=== PATIENT | female | born 1995 | race Two or more races ===

== ENCOUNTER → 2020-12-15 | Outpatient (CLI) | payer SELFPAY ==
[2020-12-20 04:08] LABS: Chlamydia By Nucleic Acid AMP Negative (Negative)
[2020-12-20 07:41] LABS: Gonococcus By Nucleic Acid AMP Negative (Negative)
[2020-12-23 11:06] LABS: HPV APTIMA, High Risk Negative (Negative)
[2020-12-23 16:58] LABS: HPV Reflexed? YES, CHARGE PATIENT
== END | disposition home or self-care (01) ==
PROVIDERS: Visit Provider Obstetrics & Gynecology
DX: Z12.4 Encounter for screening for malignant neoplasm of cervix (principal); Z11.3 Encounter for screening for infections with a predominantly sexual mode of transmission; Z32.01 Encounter for pregnancy test, result positive
CPT/HCPCS: 87491; 87591; 87624; 88175; G0145

== ENCOUNTER → 2021-01-10 09:43 | Outpatient (CLI) | payer SELFPAY ==
[2021-01-10 10:59] LABS: Absolute Lymphocyte Count 1.59 X10^3/uL (0.83-4.51); Basophil# 0.02 X10^3/uL; Basophil% 0.3 % (0-1); Eosinophil# 0.14 X10^3/uL; Eosinophils% 1.9 % (0-5); Hematocrit 38.5 % (37-47); Lymphocyte # 1.59 X10^3/ul (4.0); Lymphocyte % 22.1 % (19-41); Mean Corp Hgb Conc 31.2 g/dL (32-36); Mean Corpuscular Hgb 25.1 pg (27.0-32.0); Mean Corpuscular Volume 80.4 fL (81-99); Monocyte# 0.41 X10^3/uL; Monocyte% 5.7 % (0-10); NRBC Flagged by Analyzer 0 % (0-5); Neutrophil # 4.99 X10^3/uL (2.7-7.7); Neutrophil % 69.6 % (47-70); Platelet Count 225 K/mm3 (150-450); RBC Distribution Width CV 15.2 % (11.6-14.6); RBC Distribution Width SD 44.4 fl (35.1-43.9); Red Blood Count 4.79 M/mm3 (4.2-5.4); White Blood Count 7.2 K/mm3 (4.4-11.0)
[2021-01-10 11:56] LABS: HIV - WCH Non-Reactive (Nonreactive); Hepatitis B Surface Antigen Non-Reactive (Nonreactive); Hepatitis C Antibody Non-Reactive (Nonreactive); Rubella IgG Reactive (Nonreactive); Syphilis Antibodies Non-reactive
== END ==
PROVIDERS: Visit Provider Obstetrics & Gynecology
DX: Z34.81 Encounter for supervision of other normal pregnancy, first trimester (principal)
CPT/HCPCS: 36415; 85025; 86703; 86762; 86803; 87086; 87340

== ENCOUNTER → 2021-02-14 11:24 | Outpatient (CLI) | payer OTHER, SELFPAY ==
[2021-02-16 03:06] LABS: AFP MoM Value 0.77 (.); AFP Value-EIA 18.9 ng/mL (.); Comment Report (.); DIA MoM Value 0.62 (.); DIA Value-EIA 87.85 pg/mL (.); DSR (By Age) 1071 (.); DSR (Second Trimester) 5287 (.); Gestat. Age Based On As provided (.); Insulin Dep Diabetes No (.); hCG MoM 0.83 (.)
== END ==
LOC: WOBLAB 11:25
PROVIDERS: Visit Provider Obstetrics & Gynecology
DX: Z36.1 Encounter for antenatal screening for raised alphafetoprotein level (principal)
CPT/HCPCS: 36415; 82105; 82677; 84702

== ENCOUNTER → 2021-04-19 14:22 | Outpatient (CLI) | payer OTHER, SELFPAY ==
[2021-04-19 15:38] LABS: Hematocrit 34.6 % (37-47); Hemoglobin 10.7 g/dL (12.0-15.0); Mean Corp Hgb Conc 30.9 g/dL (32-36); Mean Corpuscular Hgb 25.4 pg (27.0-32.0); Mean Corpuscular Volume 82.2 fL (81-99); Mean Platelet Vol. 10.5 fl (6.2-12.0); Platelet Count 226 K/mm3 (150-450); RBC Distribution Width CV 14.4 % (11.6-14.6); RBC Distribution Width SD 42.3 fl (35.1-43.9); Red Blood Count 4.21 M/mm3 (4.2-5.4); White Blood Count 9.5 K/mm3 (4.4-11.0)
[2021-04-19 15:39] LABS: Glucose Challenge Gest 1H 50g 83 mg/dL (70-140)
== END ==
PROVIDERS: Visit Provider Obstetrics & Gynecology
DX: Z34.82 Encounter for supervision of other normal pregnancy, second trimester (principal)
CPT/HCPCS: 36415; 82950; 85027

== ENCOUNTER 2021-06-22 21:00 | Outpatient (CLI) | payer OTHER, SELFPAY ==
[2021-06-22 21:26] VITALS: PULSE 88; O2SAT 98
[2021-06-22 21:27] VITALS: BMI 37.6
[2021-06-22 21:30] VITALS: BP 112/69; PULSE 83
[2021-06-22 21:36] VITALS: TEMP 36.6; O2SAT 98
--- NOTE | 2021-06-23 08:57 | OB.TRI.NOTE ---
HPI - General HPI Narrative SAMUEL ALVARADO, is a 25 F at 33 weeks 3 days gestation who presents to labor and delivery with decreased movement. Maternal Data Information Final GUY: 08/07/21 Gestational age: 33 weeks 3 days PFSH PFSH Home Medications diphenhydramine-acetaminophen [Tylenol PM] 50 ml PO PRN PRN 06/22/21 [History Last Taken Unknown] [id number] [] 1 tab PO DAILY 06/22/21 [History Last Taken 06/21/21 21:00] sertraline [Zoloft] 50 mg PO DAILY 06/22/21 [History Last Taken 06/21/21 21:00] Allergy/AdvReac Type Severity Reaction Status Date / Time No Known Allergies Allergy Verified 06/22/21 21:30 NST FHR Rate Baby A NST Reactive:: Yes FHR Category:: Category I Assessment Assessment Detail: 33-week 3-day gestation with decreased movement. heart tones reactive. Discharged home with routine instructions.
== END 2021-06-22 23:20 | disposition home or self-care (01) ==
LOC: WPOUT 21:15 → WP 21:16
PROVIDERS: Referring Provider Obstetrics & Gynecology; Visit Provider Obstetrics & Gynecology
DX: O36.8130 Decreased fetal movements, third trimester, not applicable or unspecified (principal); Z3A.33 33 weeks gestation of pregnancy
CPT/HCPCS: 59025; 59050; 99218; G0378

== ENCOUNTER 2021-07-12 22:48 | Outpatient (CLI) | payer OTHER, SELFPAY ==
[2021-07-12] VITALS (9 sets, daily range): BP systolic 126; BP diastolic 78; PULSE 108–138; O2SAT 97–100; BMI 37.5
[2021-07-13] VITALS (148 sets, daily range): BP systolic 109–132; BP diastolic 56–81; PULSE 46–153; TEMP 36.2–37.2; O2SAT 81–100
--- NOTE | 2021-07-13 | EKGRS_ITS ---
Test Reason : DYSRHYTHMIA Blood Pressure : / mmHG Vent. Rate : 115 BPM Atrial Rate : 115 BPM P-R Int : 150 ms QRS Dur : 072 ms QT Int : 318 ms P-R-T Axes : 047 051 008 degrees QTc Int : 439 ms Sinus tachycardia Otherwise normal ECG Confirmed by PRATEEK REID, SAMUEL ([id number]), visual effects editor MONSTER GASPAR ([id number]) on 07/17/2021 1:10:29 PM Referred By: Lizbet Johnson Confirmed By:SAMUEL CHANDRA MD
[2021-07-13 00:04] LABS: ROM Internal Control Test YES-OK TO RESULT pt. (Internal QC); ROM Patient Test Negative (Negative)
[2021-07-13] MEDS: Lactated Ringers 1,000 ML 150 ML IV ×2 (00:25→09:14)
[2021-07-13 00:49] LABS: Absolute Lymphocyte Count 1.54 X10^3/uL (0.83-4.51); Absolute Neutrophil Count 6.5 X10^3/uL (2.0-7.7); Basophil# 0.01 X10^3/uL; Basophil% 0.1 % (0-1); Eosinophil# 0.07 X10^3/uL; Eosinophils% 0.8 % (0-5); Hematocrit 39.4 % (37-47); Lymphocyte # 1.54 X10^3/ul (0.83-4.51); Lymphocyte % 17.3 % (19-41); Mean Corp Hgb Conc 30.5 g/dL (32-36); Mean Corpuscular Hgb 24.6 pg (27.0-32.0); Mean Corpuscular Volume 80.9 fL (81-99); Mean Platelet Vol. 11.3 fl (6.2-12.0); Monocyte# 0.73 X10^3/uL; Monocyte% 8.2 % (0-10); NRBC Flagged by Analyzer 0 % (0-5); Neutrophil # 6.53 X10^3/uL (2.7-7.7); Neutrophil % 73.3 % (47-70); Platelet Count 164 K/mm3 (150-450); RBC Distribution Width CV 15.9 % (11.6-14.6); RBC Distribution Width SD 46.8 fl (35.1-43.9); Red Blood Count 4.87 M/mm3 (4.2-5.4); White Blood Count 8.9 K/mm3 (4.4-11.0)
--- NOTE | 2021-07-13 01:02 | CT_ITS ---
STUDY: CTA CHEST REASON FOR EXAM: Female, 26 years old. r/o PE RADIATION DOSAGE (If Supplied By Facility): CTDIvol = ( 13.85 ) mGy, DLP = ( 452.90 ) mGycm TECHNIQUE: The examination was performed with the intravenous administration of IV 100mL Isovue-370. Post-processing of the angiographic images was performed, with multiplanar reformation and 3D reconstruction. Individualized dose optimization techniques were used for this CT. COMPARISON: None. FINDINGS: Normal enhancement of the main pulmonary artery and right and left pulmonary arteries. Normal enhancement of the bilateral peripheral pulmonary arteries. There is no demonstrated pulmonary embolism. Normal thoracic aorta and visualized great vessels. There is no demonstrated aortic dissection. Normal heart and pericardium. Normal mediastinum. Normal hilar regions. Normal visualized trachea and bronchi. The lungs are well expanded. 1.1 cm posterior right lower lobe subpleural nodule. 2.5 cm left lung base lobular, consolidative density. Normal pleura. Normal chest wall structures. Normal osseous structures. Solid mass with perhaps internal calcification measuring up to at least 18.8 cm is partially visualized in the anterior upper abdomen. CT/CTA Chest W/WO Contrast IMPRESSION: Partially visualized anterior abdominal solid mass. Recommend CT abdomen/pelvis to evaluate malignant potential. 1.1 cm right lower lobe subpleural nodule. 2.5 cm left lung base lobular, consolidative density may represent pneumonia. Normal CTA chest examination, without a demonstrated pulmonary embolism or arterial dissection. N.B. : Una Shabazz RN, confirmed on 07/13/2021 02:06:11 (ET) that the healthcare facility has received the radiology report. Electronically Signed: Moses Burdick MD at 2:01 EDT Tel , Service support ,
--- NOTE | 2021-07-13 01:32 | PCM.PN.HOSP ---
Subjective Subjective 26-year-old female who is 36 weeks presented to the hospital with chest pain shortness of breath. She is not requiring any oxygen and satting 98 to 100% on room air. She started having symptoms of Covid about a week ago and was tested initially on the day that symptoms started and was found to be negative however she got tested on Saturday and found out on Saturday that she was positive for Covid. She thinks that she got it from her [id number] who was helping them unload after a baby shower and he had called them saying that he had been positive with Covid after that. No lightheadedness or dizziness. Objective Data Objective Data Vital Signs: Vital Signs Temp Pulse BP Pulse Ox 98.6 F 101 H 132/81 H 100 07/13/21 00:38 07/13/21 01:06 07/13/21 00:30 07/13/21 01:06 Weight: 232 lb 9.6 oz Body Mass Index (BMI) 37.5 Lab / Micro Data Result Diagrams: 07/13/21 00:25 Labs: Laboratory Results - last 24 hr 07/12/21 23:30: Vag Amniotic Fld Detect Negative 07/13/21 00:25: WBC 8.9, RBC 4.87, Hgb 12.0, Hct 39.4, MCV 80.9 L, MCH 24.6 L, MCHC 30.5 L, RDW Std Deviation 46.8 H, RDW Coeff of Sondra 15.9 H, Plt Count 164, MPV 11.3, Immature Gran % (Auto) 0.300, Neut % (Auto) 73.3 H, Lymph % (Auto) 17.3 L, [place] % (Auto) 8.2, Eos % (Auto) 0.8, Baso % (Auto) 0.1, Absolute Neuts (auto) 6.5, Absolute Lymphs (auto) 1.54, Nucleated RBC % 0 Physical Exam Const alert, oriented x3 and no apparent distress General Appearance: cooperative HEENT normocephalic and moist oral mucous membranes Eyes PERRL, EOMs intact bilaterally and conjunctivae normal Neck supple and no JVD Resp normal respiratory effort, no retractions, no use of accessory muscles and clear to auscultation bilaterally Auscultation: Negative for crackles, rales, rhonchi or wheezes Cardio regular rate, regular rhythm, S1 normal heart sound, S2 normal heart sound and no murmurs GI soft to palpation, non-tender and non-distended; Negative for hepatosplenomegaly Extremity no clubbing, cyanosis or edema Skin no rashes or lesions noted Neuro no focal motor deficits and no sensory deficits noted Psych affect normal Appearance: appropriate Assessment & Plan Assessment/Plan (1) COVID: PLAN: 1. COVID-19 -With her status, do not recommend remdesivir at this time and given the fact that she is not hypoxic I do not think that she would need Decadron either -Given her tachycardia and her chest pain and the issues with clotting in the setting of Covid would recommend a CTA of the chest to rule out a PE if okay with OB -If the CT of the chest is negative then would just recommend monitoring, however if it is positive then obviously she would require anticoagulation Charges/Coding Visit Charges Inpatient E&M: 63415 Subs Hosp L2
[2021-07-13] MEDS: Betamethasone/Betamethasone 30 MG/5 ML Vial 12 MG IM (03:02)
[2021-07-13] MEDS: Lactated Ringers 500 ML 999 ML IV (04:18)
--- NOTE | 2021-07-13 09:15 | US_ITS ---
STUDY: OBSTETRICAL ULTRASOUND - BIOPHYSICAL PROFILE REASON FOR EXAM: Female, 26 years old monitoring concerns. -- COVID POSITIVE LMP: 10/31/2020. PRIOR ULTRASOUND: None. TECHNIQUE: Transabdominal TECHNICAL QUALITY: Adequate. FINDINGS: There is a single intrauterine fetus. The fetus is in a cephalic presentation. There is demonstrated cardiac activity with a heart rate of 142 bpm. There is a normal amniotic fluid volume. The largest amniotic fluid pocket measures 6.8 cm. The amniotic fluid index (FREYA) is 17.8 cm. The placenta is fundal in location. There are Grade 2 placental changes. Age by LMP: 36 weeks, 3 days. GUY by LMP: 08/07/2021. Gender: Male BIOPHYSICAL PROFILE: Breathing Movements (FBM): 2 Gross Body Movements (GBM): 2 Tone (FT): 2 Amniotic Fluid Volume (AFV): 2 TOTAL SCORE: / US/Biophysical Prof W/O Non Stres IMPRESSION: Normal biophysical profile of 06/11. Electronically Signed: Roscoe Plaza MD at 12:43 EDT , Service support ,
--- NOTE | 2021-07-13 09:37 | PN.OBGYN_ITS ---
Subjective Subjective 36-week gestation patient who presented last evening with chest pain and approximately 1 week post diagnosis of COVID-19. Seen by hospitalist and a CTA of the chest was recommended to rule out PE. This was negative. Patient has been hydrated overnight and is actually feeling quite a bit better with chest pain minimal at present. Last evening the patient also had some intermittent late decelerations. These seem to have resolved this morning. She was given a dose of Celestone at about 3 AM in anticipation of possible delivery. Cervix has remained unchanged since admission and contractions have subsided. Objective Data Objective Data Vital Signs: Vital Signs Temp Pulse BP Pulse Ox 98.2 F 94 116/69 95 07/13/21 08:17 07/13/21 09:34 07/13/21 08:17 07/13/21 09:34 Weight: 232 lb 9.6 oz Body Mass Index (BMI) 37.5 Intake & Output: Intake and Output for Last 24 Hours 07/11/21 07/12/21 07/13/21 23:59 23:59 23:59 Intake Total 1500.0 / 1500.0 Balance 1500.0 / 1500.0 Lab / Micro Data Result Diagrams: 07/13/21 00:25 Labs: Laboratory Results - last 24 hr 07/12/21 23:30: Vag Amniotic Fld Detect Negative 07/13/21 00:25: WBC 8.9, RBC 4.87, Hgb 12.0, Hct 39.4, MCV 80.9 L, MCH 24.6 L, MCHC 30.5 L, RDW Std Deviation 46.8 H, RDW Coeff of Sondra 15.9 H, Plt Count 164, MPV 11.3, Immature Gran % (Auto) 0.300, Neut % (Auto) 73.3 H, Lymph % (Auto) 17.3 L, [place] % (Auto) 8.2, Eos % (Auto) 0.8, Baso % (Auto) 0.1, Absolute Neuts (auto) 6.5, Absolute Lymphs (auto) 1.54, Nucleated RBC % 0 07/13/21 00:25: Blood Type A POSITIVE, Antibody Screen NEGATIVE NST FHR Rate Baby A NST Reactive:: Yes FHR Category:: Category I Uterine Activity:: Reactive NST today but last evening occasional late deceleration. Minimal contractions noted today. Assessment & Plan (1) : PLAN: Symptoms of Covid infection seem to have abated today. No fevers. Will check biophysical profile and monitor for several more hours. If all are reassuring then plan to discharge to home and return tomorrow for NST and second dose of Celestone. Will have patient return next Saturday for a nonstress test and follow-up in the office in about 1 week. At that time she will be approximately 2 weeks from start of symptoms from present Covid episode. Patient was encouraged to use Nexium over the next 2 to 4 weeks to help with possible GERD.
[2021-07-13] MEDS: Pantoprazole Sodium 20 MG Tablet PO (10:00)
[2021-07-13] MEDS: Acetaminophen 500 MG Tablet 1000 MG PO (10:00)
== END 2021-07-13 13:45 | disposition home or self-care (01) ==
LOC: WPOUT 22:57 → WP 22:58
PROVIDERS: Visit Provider Obstetrics & Gynecology
DX: O98.513 Other viral diseases complicating pregnancy, third trimester (principal); U07.1 COVID-19; Z3A.36 36 weeks gestation of pregnancy
CPT/HCPCS: 96360; 96361 ×12; 36415; 59025; 59050; 71275; 76819; 84112; 85025; 86850; 86900; 86901; 93005; 94760; 96372; 99218; J7120; Q9967; G0378; J0702

== ENCOUNTER 2021-07-14 07:05 | Outpatient (CLI) | payer OTHER, SELFPAY ==
[2021-07-14 07:16] VITALS: BMI 37.0
[2021-07-14 07:33] VITALS: TEMP 36.4; O2SAT 96
[2021-07-14 07:40] VITALS: BP 119/73; PULSE 81; O2SAT 96
[2021-07-14 08:40] VITALS: BP 100/58; PULSE 69
[2021-07-14 08:42] VITALS: PULSE 72
[2021-07-14 08:43] VITALS: TEMP 36.4; O2SAT 99
[2021-07-14] MEDS: Betamethasone/Betamethasone 30 MG/5 ML Vial 12 MG IM (08:45)
--- NOTE | 2021-07-14 20:30 | OB.TRI.NOTE ---
HPI - General HPI Narrative SAMUEL ALVARADO, is a 26 F who presents at 36 4/7 wga for NST and second celestone injection. Maternal Data Information GUY Calculator Estimated Delivery Date Method Current WG Current Estimate 08/07/21 Manual 41w 1d PFSH PFS Medical History (Updated 08/15/21 @ 08:[address] Lizbet Johnson MD) Anxiety Depression Headache Vacuum-assisted vaginal delivery Home Medications [id number] 1 tab PO DAILY 06/22/21 [History Last Taken 07/13/21] sertraline [Zoloft] 50 mg PO DAILY 06/22/21 [History Last Taken 07/13/21] zinc 1 tab PO DAILY 07/12/21 [History Last Taken 07/13/21] azithromycin 500 mg PO DAILY 3 Days #3 tab 07/17/21 [Rx Last Taken Unknown] cefdinir 300 mg PO BID 6 Days #12 cap 07/17/21 [Rx Last Taken Unknown] dexamethasone 6 mg PO DAILY 9 Days #9 tab 07/17/21 [Rx Last Taken Unknown] sennosides-docusate sodium [Stool Softener-Stimulant Laxat] 1 - 2 tab PO DAILY PRN PRN #0 tab 07/17/21 [Rx Last Taken Unknown] Allergy/AdvReac Type Severity Reaction Status Date / Time No Known Allergies Allergy Verified 07/15/21 14:16 Surgical History (Updated 07/15/21 @ 20:[address] Lizbet Johnson MD) History of surgery Social History Smoking Status: Former smoker History Elective abortions Hx Para 0 Spontaneous abortions Hx # Term Pregnancies Ectopic pregnancies Hx # Pregnancies Multiple births # of living children NST FHR Rate Baby A Baseline: 130 Variability:: Moderate Accelerations:: 15 x 15 Decelerations:: None NST Reactive:: Yes FHR Category:: Category I Uterine Activity:: 0/10 Assessment & Plan (1) 36 weeks gestation of : PLAN: NST reactive Celestone # 2 given d/c home
== END 2021-07-14 09:23 | disposition home or self-care (01) ==
LOC: WPOUT 07:15 → WP 07:16
PROVIDERS: Referring Provider Obstetrics & Gynecology; Visit Provider Obstetrics & Gynecology
DX: O99.343 Other mental disorders complicating pregnancy, third trimester (principal); F32.9 Major depressive disorder, single episode, unspecified; F41.9 Anxiety disorder, unspecified; Z79.52 Long term (current) use of systemic steroids; Z79.899 Other long term (current) drug therapy; Z87.891 Personal history of nicotine dependence; Z3A.36 36 weeks gestation of pregnancy
CPT/HCPCS: 59025; 59050; 96372; 99218; G0378; J0702

== ENCOUNTER 2021-07-15 13:55 | Inpatient (IN) | payer OTHER, SELFPAY ==
[2021-07-15] VITALS (41 sets, daily range): BP systolic 79–135; BP diastolic 49–82; PULSE 66–243; TEMP 36.4–37.5; O2SAT 88–100; BMI 37.0
[2021-07-15] MEDS: Lactated Ringers 500 ML 999 ML IV ×2 (14:35→19:49)
[2021-07-15 15:00] LABS: Absolute Lymphocyte Count 1.24 X10^3/uL (0.83-4.51); Absolute Neutrophil Count 8.7 X10^3/uL (2.0-7.7); Basophil# 0.02 X10^3/uL; Basophil% 0.2 % (0-1); Eosinophil# 0.01 X10^3/uL; Eosinophils% 0.1 % (0-5); Hemoglobin 11.8 g/dL (12.0-15.0); Lymphocyte # 1.24 X10^3/ul (0.83-4.51); Lymphocyte % 11.7 % (19-41); Mean Corp Hgb Conc 30.3 g/dL (32-36); Mean Corpuscular Hgb 24.7 pg (27.0-32.0); Mean Corpuscular Volume 81.6 fL (81-99); Monocyte# 0.62 X10^3/uL; Monocyte% 5.8 % (0-10); NRBC Flagged by Analyzer 0 % (0-5); Neutrophil # 8.67 X10^3/uL (2.7-7.7); Neutrophil % 81.4 % (47-70); Platelet Count 167 K/mm3 (150-450); RBC Distribution Width SD 47.5 fl (35.1-43.9); Red Blood Count 4.78 M/mm3 (4.2-5.4); White Blood Count 10.6 K/mm3 (4.4-11.0)
--- NOTE | 2021-07-15 15:00 | HP.PCM.OB_ITS ---
HPI - General General Date of Admission: 07/15/21 HPI Narrative SAMUEL ALVARADO, is a 26 F who presents G3, P0 at 36 weeks 5 days in active labor 4 to 5 cm dilated. Patient a positive Covid test on Saturday and is feeling better today denies any chest pain shortness of breath cough or wheezing. Patient denies any fevers for more than a few days. She started having increased contractions throughout the day today. She received 2 doses of steroids the last was 24 hours ago. PFSH [facility] Medical History (Updated 07/15/21 @ 15:[address] Alyse Gerber MD) Anxiety Depression Headache Home Medications diphenhydramine-acetaminophen [Tylenol PM] 50 ml PO PRN PRN 06/22/21 [History Last Taken 07/11/21] [id number]-FA [] 1 tab PO DAILY 06/22/21 [History Last Taken 07/13/21] sertraline [Zoloft] 50 mg PO DAILY 06/22/21 [History Last Taken 07/13/21] ascorbic acid (vitamin C) [Vitamin C] 100 mg PO DAILY 07/12/21 [History Last Taken 07/13/21] zinc 1 tab PO DAILY 07/12/21 [History Last Taken 07/13/21] Allergy/AdvReac Type Severity Reaction Status Date / Time No Known Allergies Allergy Verified 07/15/21 14:16 Surgical History (Updated 07/13/21 @ 06:20 by Bing Nina) History of surgery Social History Smoking Status: Former smoker History Elective abortions Hx Para 0 Spontaneous abortions Hx # Term Pregnancies Ectopic pregnancies Hx # Pregnancies Multiple births # of living children NST FHR Rate Baby A Baseline: 140 Variability:: Moderate Accelerations:: None Decelerations:: Variable (Isolated mild) NST Reactive:: Yes FHR Category:: Category II (Getting IV fluids variability improved with fluids) Uterine Activity:: Every 2 to 3 ROS Constitutional Constitutional: Reports systems reviewed and no addt'l complaints, except as documented ENT HEENT: Reports systems reviewed and no addt'l complaints, except as documented Cardiovascular Cardiovascular: Reports systems reviewed and no addt'l complaints, except as documented Respiratory/Chest Respiratory/Chest: Reports systems reviewed and no addt'l complaints, except as documented Gastrointestinal Gastrointestinal: Reports systems reviewed and no addt'l complaints, except as d ocumented and nausea; Denies abdominal pain Genitourinary Genitourinary: Reports systems reviewed and no addt'l complaints, except as documented, contractions Details: present and frequency (regular ) and movement Details: present Musculoskeletal Musculoskeletal: Reports systems reviewed and no addt'l complaints, except as documented Integumentary Integumentary: Reports as per HPI Neurologic Neurologic: Reports systems reviewed and no addt'l complaints, except as documented Endocrine Endocrinology: Reports systems reviewed and no addt'l complaints, except as documented Vital Signs Vital Signs Vital Signs: 07/15/21 14:27 Temperature 98.2 F Temperature Source Temporal Pulse Rate 80 Blood Pressure 116/72 BP Systolic 116 BP Diastolic 72 Pulse Ox 97 Weight Weight: 229 lb 4.492 oz Body Mass Index (BMI) 37.0 Physical Exam Const alert, oriented x3 and healthy appearing Constitutional Narrative: uncomfortable with contractions HEENT normocephalic and moist oral mucous membranes Head and Scalp: atraumatic Neck full ROM, no lymphadenopathy, supple and thyroid normal General: trachea midline Thyroid: thyroid normal Lymph Lymphatic: no lymphadenopathy noted Chest inspection of chest normal Resp normal respiratory effort Cardio regular rate GI normal to inspection, nondistended, normoactive bowel sounds, soft to palpation and non-tender Inspection: gravid external exam normal Bimanual Exam - Vag & Uterus: uterus non-tender Manual OB Exam: estimated gestational size appropriate, presentation cephalic, dilated 4.5, effaced 70, station and other -2 Extremity normal to inspection General Extremity: Negative for edema Skin no rashes or lesions noted Neuro deep tendon reflexes 2+ bilaterally Motor Exam: strength 5/5 throughout and clonus absent Psych mental status grossly normal Labs Labs Labs: Blood Type A POSITIVE Antibody Screen NEGATIVE Hct 39.4 % (37-47) Hgb 12.0 g/dL (12.0-15.0) Syphilis Total Ab Non-reactive Rubella IgG Antibody Reactive (Nonreactive) Hep Bs Antigen Non-Reactive (Nonreactive) Neisseria gonorrhoeae DNA ([place]A) Negative (Negative) HIV 1&2 Antibody Non-Reactive (Nonreactive) Glucose 1 Hr 50 gm 83 mg/dL (70-140) Assessment & Plan (1) labor: COMMENT: 36w5d (2) : (3) COVID: COMMENT: 07/10 PLAN: Patient presents IAL, plan expectant management for , pitocin/AROM PRN if needed. Pain management: plans epidural. GBS unknown- PCN Management of any complications: covid 19 pos- appropriate precautions. cat II tracing- IVFs, monitoring, position changes, will add 02 PRN. I have reviewed the [facility] and made any clinically relevant updates.
[2021-07-15] MEDS: Lactated Ringers 1,000 ML 50 ML IV (15:10)
[2021-07-15] MEDS: fentaNYL-bupivacaine (epidural) 100 ML BAG EPIDURAL (15:45)
[2021-07-15] MEDS: Oxytocin 30 units/NS 500 ml 30 UNITS/500 ML IV.SOLN 334 UNITS IV (20:15)
--- NOTE | 2021-07-15 20:53 | OP.PCM_ITS ---
Assessment & Plan (1) Vacuum-assisted vaginal delivery: (2) COVID: COMMENT: First sx 07/06/21 - - 07/10 Maternal Data Information GUY Calculator Estimated Delivery Date Method Current WG Current Estimate 08/07/21 Manual 36w 5d Vaginal Delivery Maternal Presentation Maternal Presentation: Active Labor Operative Information Date of Procedure: 07/15/21 Pre-Operative Diagnosis: 1. 36-5/7 weeks gestation 2. labor 3. COVID-19 positive 4. Category two heart rate tracing Post-Operative Diagnosis: 1. 36-5/7 weeks gestation 2. labor 3. COVID-19 positive 4. Category two heart rate tracing Surgery / Procedure Performed: Vacuum Assisted Vaginal Delivery Type of Anesthesia: Epidural Anesthesiologist: Adolph Lopes Drain: Garcia to straight drain Estimated Blood Loss: 250 ml Findings Description of Procedure: Patient was fully dilated and zero station with category two heart rate tracing with moderate variability maintained. She pushed with descent however there were increasing and deepening heart rate variable decelerations despite maternal repositioning and fluid bolus. I advised vacuum assistance with review of vacuum related risk including scalp edema, cephalohematoma, subgaleal hemorrhage, scalp laceration. I discussed section as an alternative with review of associated maternal- risk. The patient agreed to proceed with vacuum assistance. The fetus was OA and the vacuum was placed at the flexion point with 500 mm suction applied at 1952h. There was some intermittent slight loss of suction that was reapplied and a single pop-off occurred at 2002. The vacuum was reapplied with the subsequent contraction with continued descent of the head. Total time with the vacuum in place was approximately 18-19 minutes with subsequent delivery of the head. The vacuum was released at 2010 and infant shoulders delivered with ease revealing a male infant. The was placed on maternal abdomen and further attended by the nursery personnel. The cord was doubly clamped and cut and the was evaluated in the by the pediatric hospitalist. The placenta delivered spontaneously and appeared intact on inspection. A first-degree perineal laceration with vaginal extension was repaired using 3-0 Vicryl repeat. A right labial laceration extending to the hymenal ring was also repaired with hemostasis attained at both sites. The nurse and I both attempted retrieval of arterial and venous cord gases however insufficient specimen volume was obtained for processing. Sponge and needle counts were correct x2. Apgars 5, 7, and 9 Presentation: Vertex Amniotic Membrane Rupture Type: Artificial Time of Membrane Rupture: 1634h Amniotic Fluid Description: Clear Placental Delivery Description: Spontaneous Placenta Disposition: [facility] Specimen(s) Removed: Placenta Cord Vessel Description: 3 Vessels Cord Entanglement: - (Around shoulder and thigh) Nuchal Cord Compression: With compression Infant A Gender: Male (1 minute): 5 (5 minute): 7 Delayed Cord Clamping: No Post Vaginal Delivery Medications Given After Delivery: IV Pitocin Episiotomy Description: None Laceration: Midline, Perineal Extension/lac, Vaginal Extension/lac and 2nd degree
[2021-07-15] MEDS: Acetaminophen 500 MG Tablet 1000 MG PO (21:35)
[2021-07-15] MEDS: 0.9% Saline Lock 10 ML Syringe IV (22:59)
[2021-07-15] MEDS: Ibuprofen 600 MG Tablet PO (22:59)
[2021-07-16] VITALS (10 sets, daily range): BP systolic 94–138; BP diastolic 46–81; PULSE 60–123; RESP 16–20; TEMP 36.9–39.2; O2SAT 93–99
[2021-07-16] MEDS: Acetaminophen 500 MG Tablet 1000 MG PO ×3 (06:06→21:27)
--- NOTE | 2021-07-16 08:01 | PN.OBGYN_ITS ---
Subjective Subjective No issues overnight. Visited her infant in the special care nursery overnight. She is pumping. Reports few coughing episodes with shortness of breath, but otherwise denies shortness of breath or chest pain. Denies heavy lochia or belly pain. Objective Data Objective Data Vital Signs: Vital Signs Temp Pulse Resp BP Pulse Ox 98.8 F 82 18 94/46 L 100 07/16/21 06:13 07/16/21 02:54 07/16/21 02:54 07/16/21 02:54 07/15/21 22:55 Oxygen Delivery Method Room Air Weight: 104 kg Body Mass Index (BMI) 37.0 Intake & Output: Intake and Output for Last 24 Hours 07/14/21 07/15/21 07/16/21 23:59 23:59 23:59 Intake Total 2467.07 / 2467.07 Output Total 1800 / 1800 600 / 600 Balance 667.07 / 667.07 -600 / -600 Lab / Micro Data Result Diagrams: 07/15/21 14:35 Labs: Laboratory Results - last 24 hr 07/15/21 14:35: WBC 10.6, RBC 4.78, Hgb 11.8 L, Hct 39.0, MCV 81.6, MCH 24.7 L, MCHC 30.3 L, RDW Std Deviation 47.5 H, RDW Coeff of Sondra 16.0 H, Plt Count 167, MPV 11.0, Immature Gran % (Auto) 0.800, Neut % (Auto) 81.4 H, Lymph % (Auto) 11.7 L, [place] % (Auto) 5.8, Eos % (Auto) 0.1, Baso % (Auto) 0.2, Absolute Neuts (auto) 8.7 H, Absolute Lymphs (auto) 1.24, Nucleated RBC % 0 07/15/21 14:35: Blood Type Cancelled, Antibody Screen Cancelled 07/15/21 16:55: Blood Type A POSITIVE, Antibody Screen NEGATIVE Physical Exam Const alert, oriented x3 and no apparent distress General Appearance: cooperative and comfortable HEENT normocephalic Resp Auscultation: clear to auscultation bilaterally Cardio regular rate, regular rhythm, S1 normal heart sound and S2 normal heart sound OB / External & Speculum: other Uterus Palpation: other OB Fundus firm and nontender Extremity General Extremity: edema bilateral Assessment & Plan (1) Vacuum-assisted vaginal delivery: PLAN: Rh positive Routine care (2) COVID: COMMENT: First sx 07/06/21 PLAN: Sx much improved from prior with residual intermittent cough Supportive care
--- NOTE | 2021-07-16 21:35 | RAD_ITS ---
STUDY: X-RAY CHEST REASON FOR EXAM: Female, 26 years old. fever r/o pna -- covid19, first sx 9/, now fever, cough PPD#1 TECHNIQUE: PA and lateral chest radiographs COMPARISON: None. FINDINGS: Bilateral infrahilar pulmonary infiltrates. Bibasilar atelectasis. There is no demonstrated pleural abnormality. Normal size heart. Normal mediastinum and russell. Normal visualized pulmonary arteries. Normal visualized aortic arch and descending thoracic aorta. Normal visualized thoracic spine. Normal visualized ribs, clavicles, and shoulders. There is no demonstrated abnormality of the visualized soft tissue structures of the upper abdomen. RAD/Chest PA and Lateral IMPRESSION: Multifocal pneumonia with bibasilar atelectasis. Electronically Signed: Moses Burdick MD at 23:46 EDT Tel , Service support ,
[2021-07-16 22:28] LABS: Absolute Lymphocyte Count 0.81 X10^3/uL (0.83-4.51); Absolute Neutrophil Count 5.5 X10^3/uL (2.0-7.7); Basophil# 0.02 X10^3/uL; Basophil% 0.3 % (0-1); Eosinophil# 0.03 X10^3/uL; Eosinophils% 0.4 % (0-5); Hematocrit 36.1 % (37-47); Hemoglobin 11.1 g/dL (12.0-15.0); Lymphocyte # 0.81 X10^3/ul (0.83-4.51); Lymphocyte % 11.9 % (19-41); Mean Corp Hgb Conc 30.7 g/dL (32-36); Mean Corpuscular Hgb 24.4 pg (27.0-32.0); Mean Corpuscular Volume 79.5 fL (81-99); Mean Platelet Vol. 10.6 fl (6.2-12.0); Monocyte# 0.31 X10^3/uL; Monocyte% 4.6 % (0-10); NRBC Flagged by Analyzer 0 % (0-5); Neutrophil % 81.2 % (47-70); Platelet Count 148 K/mm3 (150-450); RBC Distribution Width CV 16.1 % (11.6-14.6); RBC Distribution Width SD 46.4 fl (35.1-43.9); Red Blood Count 4.54 M/mm3 (4.2-5.4); White Blood Count 6.8 K/mm3 (4.4-11.0)
[2021-07-16] MEDS: Enoxaparin 40 MG/0.4 ML Syringe SC (22:37)
[2021-07-16] MEDS: Ceftriaxone 1 GM/50 ML BAG IV (22:37)
[2021-07-16] MEDS: Azithromycin 250 MG Tablet 500 MG PO (22:37)
[2021-07-16] MEDS: Ibuprofen 600 MG Tablet PO (22:41)
[2021-07-16 22:53] LABS: Bacteria 0 SEEN /hpf (None Seen); Mucous, Urine 0 SEEN /hpf (<or=2+); Squamous Epithelial Cells - UA 0 SEEN /hpf (5-10); White Blood Cells 0 SEEN /hpf (0-5)
[2021-07-16 23:03] LABS: ALB/GLOB Ratio 0.6 RATIO (0.9-2.4); AST(SGOT) 25 U/L (15-37); Alanine Aminotransfer ALT/SGPT 16 U/L (13-56); Albumin, Serum 2.2 g/dL (3.2-5.0); Alkaline Phosphatase 91 U/L (45-117); Anion Gap 10 (5-15); BUN 8 mg/dL (7-18); BUN/Creat Ratio 13.4 RATIO (10-20); Calcium,Total 8.3 mg/dL (8.5-10.1); Chloride 104 mmol/L (98-107); EST Glomerular Filtration Rate 131 mL/min (>60); Est Glom Filt Rate - Afr Amer 159 mL/min (>60); Estimated Creatinine Clearance 135.35 ml/min; Globulin 3.7 g/dL (2.2-4.2); Glucose 92 mg/dL (74-106); Potassium 3.3 mmol/L (3.5-5.1); Protein, Total 5.9 g/dL (6.4-8.2); Sodium Level 139 mmol/L (136-145)
[2021-07-16 23:04] LABS: Lactic Acid 1.1 mmol/L (0.4-1.9)
[2021-07-16 23:04] LABS: Color, Urine Yellow (Yellow); Glucose, Dipstick Normal (Normal); Ketone-Dipstick Negative (Negative); Leukocyte Esterase-Dipstick 100 /ul (Negative); Nitrite-Dipstick Negative (Negative); Occult Blood-Urine 250 /ul (Negative); Protein-Dipstick 15 mg/dl (Negative); Urine Bilirubin Dipstick Negative (Negative); Urine Clarity Sl. Cloudy (Clear); Urine Urobilinogen Normal (Normal)
--- NOTE | 2021-07-16 23:04 | PN_ITS ---
Subjective Subjective Patient c/o fever, chills, headache and cough. She reports shortness of breath when lying down or related to coughing. Cough worse than yesterday and this morning. She feels like she gets something stuck in her throat and keeps coughing until phlegm comes up. She denies congestion, rhinorrhea, sore throat, nausea, vomiting. + mild left ear pain. No chest pain, abdominal pain. Denies heavy bleeding or vaginal odor, leg pain or leg swelling. Objective Data Objective Data Vital Signs: Vital Signs Temp Pulse Resp BP Pulse Ox 98.9 F 116 H 18 111/70 93 07/16/21 22:52 07/16/21 22:52 07/16/21 22:52 07/16/21 22:52 07/16/21 22:52 Oxygen Delivery Method Room Air Weight: 104 kg Body Mass Index (BMI) 37.0 Intake & Output: Intake and Output for Last 24 Hours 07/14/21 07/15/21 07/16/21 23:59 23:59 23:59 Intake Total 2467.07 / 2467.07 Output Total 1800 / 1800 600 / 600 Balance 667.07 / 667.07 -600 / -600 Lab / Micro Data Result Diagrams: 07/16/21 22:10 07/16/21 22:10 Labs: Laboratory Results - last 24 hr 07/16/21 22:10: Sodium 139, Potassium 3.3 L, Chloride 104, Carbon Dioxide 25.0, Anion Gap 10, BUN 8, Creatinine 0.60, Estim Creat Clear Calc 135.35, Est GFR (MDRD) Af Amer 159, Est GFR (MDRD) Non-Af 131, BUN/Creatinine Ratio 13.4, Glucose 92, Calcium 8.3 L, Total Bilirubin 0.30, AST 25, ALT 16, Alkaline Phosphatase 91, Total Protein 5.9 L, Albumin 2.2 L, Globulin 3.7, Albumin/Globulin Ratio 0.6 L 07/16/21 22:10: WBC 6.8, RBC 4.54, Hgb 11.1 L, Hct 36.1 L, MCV 79.5 L, MCH 24.4 L, MCHC 30.7 L, RDW Std Deviation 46.4 H, RDW Coeff of Sondra 16.1 H, Plt Count 148 L, MPV 10.6, Immature Gran % (Auto) 1.600 H, Neut % (Auto) 81.2 H, Lymph % (Auto) 11.9 L, [place] % (Auto) 4.6, Eos % (Auto) 0.4, Baso % (Auto) 0.3, Absolute Neuts (auto) 5.5, Absolute Lymphs (auto) 0.81 L, Nucleated RBC % 0 07/16/21 22:14: Lactic Acid 1.1 Physical Exam Const alert, oriented x3 and no apparent distress HEENT normocephalic Resp normal respiratory effort, no retractions and no use of accessory muscles Resp Narrative: decreased air movement in right lower lung and few rhonchi in left mid lung Effort and Inspection: able to speak in complete sentences Cardio regular rhythm, S1 normal heart sound, S2 normal heart sound and no murmurs Rate: tachycardic GI normal to inspection, nondistended, normoactive bowel sounds, soft to palpation, non-tender, non-distended and no masses no CVA tenderness Narrative: No suprapubic tenderness, no fundal tenderness Uterus Palpation: uterus fundus firm and other OB fundus nontender Extremity no calf tenderness and no pedal edema Neuro oriented x3 Assessment & Plan Assessment/Plan (1) Puerperal fever, : PLAN: Suspect PNA - wbc 6.8, relative leukopenia given recent delivery and recent betamethasone course completed CTA Chest 07/13 reviewed with possible left PNA and CXR today suggests PNA. Await final read. Dfdx UTI - U/A, Ucx sent Blood culture x 2 given high grade fever f/u lactate (2) Pneumonia: QUALIFIERS: Pneumonia type: due to unspecified organism PLAN: Ceftriaxone, Azithromycin (3) COVID: PLAN: First sx 07/06 - pt post quarantine - low risk for transmission (4) Vacuum-assisted vaginal delivery: PLAN: Routine care (5) Hypokalemia: PLAN: Will replete
[2021-07-16 23:14] LABS: Red Blood Cells-Urine 25-50 SEEN /hpf (0-5)
[2021-07-17] VITALS (8 sets, daily range): BP systolic 97–133; BP diastolic 53–86; PULSE 85–115; RESP 16–18; TEMP 36.3–38.1; O2SAT 92–100
[2021-07-17] MEDS: Sertraline 50 MG Tablet PO (00:06)
--- NOTE | 2021-07-17 03:11 | NURSING ---
Pt placed on continuous pulse ox during previous vitals. Upon rounding, pt sleeping and sao2 92% on room air and dropped down to 87%. Pt placed on 3L O2 via nasal cannula. After NC placed, sa02 increased to 95-96%.
--- NOTE | 2021-07-17 07:18 | PN.OBGYN_ITS ---
Subjective Subjective Denies fever or chills. Reports continue shortness of breath with no worsening from prior. No abdominal, chest pain. Denies heavy lochia. Objective Data Objective Data Vital Signs: Vital Signs Temp Pulse Resp BP Pulse Ox 97.3 F L 85 16 107/63 96 07/17/21 05:30 07/17/21 05:30 07/17/21 05:30 07/17/21 05:30 07/17/21 05:30 Oxygen Flow Rate (L/min) 3 Oxygen Delivery Method Nasal Cannula Weight: 104 kg Body Mass Index (BMI) 37.0 Intake & Output: Intake and Output for Last 24 Hours 07/15/21 07/16/21 07/17/21 23:59 23:59 23:59 Intake Total 2467.07 / 2467.07 50 / 50 Output Total 1800 / 1800 600 / 600 Balance 667.07 / 667.07 -550 / -550 Lab / Micro Data Result Diagrams: 07/16/21 22:10 07/16/21 22:10 Labs: Laboratory Results - last 24 hr 07/16/21 22:10: Sodium 139, Potassium 3.3 L, Chloride 104, Carbon Dioxide 25.0, Anion Gap 10, BUN 8, Creatinine 0.60, Estim Creat Clear Calc 135.35, Est GFR (MDRD) Af Amer 159, Est GFR (MDRD) Non-Af 131, BUN/Creatinine Ratio 13.4, Glucose 92, Calcium 8.3 L, Total Bilirubin 0.30, AST 25, ALT 16, Alkaline Phosphatase 91, Total Protein 5.9 L, Albumin 2.2 L, Globulin 3.7, Albumin/Globulin Ratio 0.6 L 07/16/21 22:10: WBC 6.8, RBC 4.54, Hgb 11.1 L, Hct 36.1 L, MCV 79.5 L, MCH 24.4 L, MCHC 30.7 L, RDW Std Deviation 46.4 H, RDW Coeff of Sondra 16.1 H, Plt Count 148 L, MPV 10.6, Immature Gran % (Auto) 1.600 H, Neut % (Auto) 81.2 H, Lymph % (Auto) 11.9 L, [place] % (Auto) 4.6, Eos % (Auto) 0.4, Baso % (Auto) 0.3, Absolute Neuts (auto) 5.5, Absolute Lymphs (auto) 0.81 L, Nucleated RBC % 0 07/16/21 22:14: Lactic Acid 1.1 07/16/21 22:45: Urine Color Yellow, Urine Clarity Sl. Cloudy, Urine pH 7.0, Ur Specific [place] 1.010, Urine Protein 15 H, Urine Glucose (UA) Normal, Urine Ketones Negative, Urine Occult Blood 250 H, Urine Nitrite Negative, Urine Bilirubin Negative, Urine Urobilinogen Normal, Ur Leukocyte Esterase 100 H, Urine RBC 25-50 SEEN, Urine WBC 0 SEEN, Ur Squamous Epith Cells 0 SEEN, Urine Bacteria 0 SEEN, Urine Mucus 0 SEEN Radiography Diagnostic Testing: Radiology Impression Chest X-Ray 07/16/21 21:35 IMPRESSION: Multifocal pneumonia with bibasilar atelectasis. Electronically Signed: Moses Burdick MD at 23:46 EDT Tel , Service support , ROS Constitutional Constitutional: Reports systems reviewed and no addt'l complaints, except as d ocumented ENT HEENT: Reports systems reviewed and no addt'l complaints, except as documented Cardiovascular Cardiovascular: Reports systems reviewed and no addt'l complaints, except as documented Respiratory/Chest Respiratory/Chest: Reports systems reviewed and no addt'l complaints, except as documented Gastrointestinal Gastrointestinal: Reports systems reviewed and no addt'l complaints, except as documented and nausea; Denies abdominal pain Genitourinary Genitourinary: Reports systems reviewed and no addt'l complaints, except as documented, contractions Details: present and frequency (regular ) and movement Details: present Musculoskeletal Musculoskeletal: Reports systems reviewed and no addt'l complaints, except as documented Integumentary Integumentary: Reports as per HPI Neurologic Neurologic: Reports systems reviewed and no addt'l complaints, except as documented Endocrine Endocrinology: Reports systems reviewed and no addt'l complaints, except as documented Physical Exam Const alert, oriented x3 and no apparent distress General Appearance: cooperative and comfortable HEENT normocephalic Resp normal respiratory effort, no retractions and no use of accessory muscles Resp Narrative: bilateral rhonichi in mid to lower lung fileds Effort and Inspection: able to speak in complete sentences Auscultation: clear to auscultation bilaterally Cardio regular rate, regular rhythm, S1 normal heart sound, S2 normal heart sound and no murmurs GI normal to inspection, nondistended, normoactive bowel sounds, soft to palpation, non-tender, non-distended and no masses Narrative: no fundal tenderness OB / External & Speculum: other Uterus Palpation: uterus fundus firm and other OB fundus nontender Extremity no calf tenderness and no pedal edema Neuro oriented x3 Assessment & Plan (1) Puerperal fever, : PLAN: Bilateral PNA (2) Pneumonia: QUALIFIERS: Pneumonia type: due to unspecified organism PLAN: Ceftriaxone, Azithromycin Will obtain Hospitalist consultation to assess if MRSA coverage also needed given recent COVID19 dx (3) COVID: COMMENT: First sx 07/06/21 PLAN: First sx 07/06 - pt post quarantine - low risk for transmission (4) Vacuum-assisted vaginal delivery: PLAN: Routine care (5) Hypokalemia: PLAN: Will replete
--- NOTE | 2021-07-17 08:13 | NURSING ---
hospitalist called this RN, order to walk pt in room and see what her pulse ox does. he will call back
[2021-07-17] MEDS: Potassium Chloride Oral Tablet 20 MEQ 40 MEQ PO (08:20)
--- NOTE | 2021-07-17 08:36 | NURSING ---
rn had mother walk in room while on spo2 monitor. traced in 90's. was 02% when she got back to bed with quick return to 97%. stated was a little short of breath
--- NOTE | 2021-07-17 09:50 | PN.HOSP_ITS ---
Documented by User: Roxana Woody NP, BRICKLAYER-C 07/17/21 10:08 Subjective Subjective Patient seen and examined. Previously on supplemental oxygen however oxygen stable on room air this morning. Reports fever overnight, 102.6 Fahrenheit. Reports cough, fatigue. Denies shortness of breath. Objective Data Objective Data Vital Signs: Vital Signs Temp Pulse Resp BP Pulse Ox 98.6 F 93 18 97/70 100 07/17/21 08:10 07/17/21 08:10 07/17/21 08:15 07/17/21 08:10 07/17/21 08:10 Oxygen Flow Rate (L/min) 3 Oxygen Delivery Method Nasal Cannula Weight: 229 lb 4.492 oz Body Mass Index (BMI) 37.0 Intake & Output: Intake and Output for Last 24 Hours 07/15/21 07/16/21 07/17/21 23:59 23:59 23:59 Intake Total 2467.07 / 2467.07 50 / 50 Output Total 1800 / 1800 600 / 600 Balance 667.07 / 667.07 -550 / -550 Lab / Micro Data Result Diagrams: 07/16/21 22:10 07/16/21 22:10 Labs: Laboratory Results - last 24 hr 07/16/21 22:10: Sodium 139, Potassium 3.3 L, Chloride 104, Carbon Dioxide 25.0, Anion Gap 10, BUN 8, Creatinine 0.60, Estim Creat Clear Calc 135.35, Est GFR (MDRD) Af Amer 159, Est GFR (MDRD) Non-Af 131, BUN/Creatinine Ratio 13.4, Glucose 92, Calcium 8.3 L, Total Bilirubin 0.30, AST 25, ALT 16, Alkaline Phosphatase 91, Total Protein 5.9 L, Albumin 2.2 L, Globulin 3.7, Albumin/Globulin Ratio 0.6 L 07/16/21 22:10: WBC 6.8, RBC 4.54, Hgb 11.1 L, Hct 36.1 L, MCV 79.5 L, MCH 24.4 L, MCHC 30.7 L, RDW Std Deviation 46.4 H, RDW Coeff of Sondra 16.1 H, Plt Count 148 L, MPV 10.6, Immature Gran % (Auto) 1.600 H, Neut % (Auto) 81.2 H, Lymph % (Auto) 11.9 L, [place] % (Auto) 4.6, Eos % (Auto) 0.4, Baso % (Auto) 0.3, Absolute Neuts (auto) 5.5, Absolute Lymphs (auto) 0.81 L, Nucleated RBC % 0 07/16/21 22:14: Lactic Acid 1.1 07/16/21 22:45: Urine Color Yellow, Urine Clarity Sl. Cloudy, Urine pH 7.0, Ur Specific [place] 1.010, Urine Protein 15 H, Urine Glucose (UA) Normal, Urine Ketones Negative, Urine Occult Blood 250 H, Urine Nitrite Negative, Urine Bilirubin Negative, Urine Urobilinogen Normal, Ur Leukocyte Esterase 100 H, Urine RBC 25-50 SEEN, Urine WBC 0 SEEN, Ur Squamous Epith Cells 0 SEEN, Urine Bacteria 0 SEEN, Urine Mucus 0 SEEN Radiography Diagnostic Testing: Radiology Impression Chest X-Ray 07/16/21 21:35 IMPRESSION: Multifocal pneumonia with bibasilar atelectasis. Electronically Signed: Moses Burdick MD at 23:46 EDT Tel , Service support , Physical Exam Const alert, oriented x3 and no apparent distress Orientation / Consciousness: awake, oriented to person, oriented to place and oriented to time HEENT normocephalic and moist oral mucous membranes Eyes PERRL, EOMs intact bilaterally and conjunctivae normal Neck no lymphadenopathy Resp normal respiratory effort and clear to auscultation bilaterally Cardio regular rate, regular rhythm and no murmurs Peripheral Pulses: pulses 2+ throughout GI normal to inspection, nondistended, normoactive bowel sounds, non-tender and non-distended Extremity normal to inspection Skin no rashes or lesions noted Lesions: no lesions Rashes: no rashes Trauma: no lacerations or abrasions Neuro CN's II-XII intact bilaterally, no focal motor deficits, no sensory deficits noted and deep tendon reflexes 2+ bilaterally Psych mental status grossly normal and affect normal Assessment & Plan Assessment/Plan (1) Pneumonia: QUALIFIERS: Pneumonia type: due to unspecified organism (2) COVID: PLAN: 1. COVID-19 pneumonia with suspected secondary superimposed bacterial pneumonia- CTA 07/13/2021 demonstrated 2.5 cm left lung base lobular density, possibly pneumonia. Additional 1.1 cm right lower lobe subpleural nodule. Recommend outpatient follow-up for repeat imaging 3-6 months per primary care provider. Chest x-ray 07/16/2021 demonstrates multifocal pneumonia with bibasilar atelectasis. Likely related to COVID-19 pneumonia however cannot rule out secondary superimposed bacterial pneumonia. On IV Rocephin and IV azithromycin. Recommend discharge on oral azithromycin and oral Omnicef to complete 7-day course. Initiated on Decadron 6 mg daily for 10-day course. Earnest quezada is out of the window for remdesivir with symptom onset 07/06/21. Given documented hypoxia during admission, patient is technically severe COVID-19 disease in terms of isolation-recommend 20-day isolation/quarantine with end date 07/25/2021. Strongly recommend COVID-19 vaccination following resolve of acute illness. Patient was ambulated this morning and oxygen remained stable on room air. Okay for discharge from a medical standpoint with recommendations as previously noted. 2. Status post vacuum-assisted vaginal delivery 07/15/21-management per OBGYN. 3. Mild hypokalemia-replaced appropriately. 4. Depression-on sertraline. DVT prophylaxis- Lovenox sc This patient was seen by Roxana Woody, JANET-C under the supervision of Dr. Lozano. Documented by User: Dr. Mike Lozano DO 07/19/21 16:10 Objective Data Lab / Micro Data Result Diagrams: 07/16/21 22:10 07/16/21 22:10 Charges/Coding Addendum Addendum: The date of this entry is 07/17/21: Patient was seen and examined independently of Roxana Woody, she was seen in the labor and delivery department at the request of obstetrics and gynecology (Dr. Gladys Johnson) due to concerns of fever and possible pneumonia as well as COVID-19. Patient had tested positive as an outpatient for COVID-19 several days prior to being admitted for of her baby, she was outside the window of patient had delivered on 07/15/2021 at [facility], chest x-ray on 07/16/2021 demonstrated multifocal pneumonia with bibasilar atelectasis, secondary superimposed bacterial pneumonia cannot be ruled out however and the patient was placed on antibiotics and these were continued per my direction. Patient was hypoxic during the time of her stay at the hospital but on the day of discharge, the patient did not require any supplemental oxygen so I did not recommend that the patient receive remdesivir due to the fact that she was not hypoxic. It was possible also that the patient had Covid more than 10 days ago-she initially told a hospitalist who saw her on 07/13/2021 that she had symptoms a week before that but had tested negative-it is positive that this test was falsely negative. I recommended however that we give the patient outpatient dexamethasone, she did have a dose in the hospital also. On examination she appeared in good health and spirits, she does not appear to be in any distress. Vital signs as documented. Skin warm and dry and without overt rashes. Neck without JVD, thyroid appears normal, trachea is midline, neck is supple. Lungs clear, normal air movement was noted. Heart exam notable for regular rhythm, normal sounds and absence of murmurs, rubs or gallops. Abdomen unremarkable and without evidence of organomegaly, masses, or abdominal aortic enlargement, bowel sounds are present in all 4 quadrants, no abdominal tenderness was noted. Extremities nonedematous, no cyanosis was noted, no clubbing was noted. Neuro: Cranial nerves II through XII are grossly intact, no focal motor deficits were noted, sensation to light touch and pinprick is intact, motor exam 5/5 throughout. Psych: Patient is alert and oriented x3, she does not appear anxious or depressed, she does not appear agitated. Patient appears stable for discharge on 07/17/2021. I have reviewed Roxana Woody's progress note on 07/17/2021 including her medical assessment and plan of care and endorse it. Visit Charges Inpatient E&M: 84621 Subs Hosp L2
[2021-07-17] MEDS: dexAMETHasone 4 MG Tablet 6 MG PO (10:19)
[2021-07-17] MEDS: Prenatal Vits Tablet 1 TABLET PO (10:19)
[2021-07-17] MEDS: Ipratropium/Albuterol Sulfate 3 ML AMPUL.NEB INHALATION (15:38)
--- NOTE | 2021-07-17 16:00 | CASEMGMT ---
Social Work Brief Assessment Labor and Delivery Unit Patient Address: [address] [place] [address] [address], [place] [address] Phone number: [phone] Date of Referral/Notification: 07/17/2021 Referred By: Social work identification Date of Intervention: 07/17/2021 Time of Intervention: 1600 Reason for Referral: Baby admitted to the [facility], maternal history of depression, anxiety, and early THC use Informant: Medical record and mother of baby (MOB) Mercedes Montiel Kwame *educated MOB that this television script writer is the psychiatric social worker for [facility] labor and delivery unit, and for continuity of care of families admitted to the special care nursery also provide social work services to the [facility].* History: MOB is a 26-year-old single female involved with the reported father of baby (FOB) Allen Lucas (born 11/28/1981). Involved in the last 5 years. MOB is 3, para 0 now 1 after delivering baby boy Fran at 36 weeks gestation. Apgars at were 5-7-9 at 1-5-10 minutes of life respectively. weight was 6 pounds 14 ounces. Infant admitted into the [facility] after . MOB positive for Covid at time of delivery. MOB also with a history of colitis. MOB quit school in the 12th grade, but reports ability to read, write, and understand what is read. 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 FOB has been off of work over the summer due to having several shoulder surgeries and Worker's Compensation issues. MOB and FOB both have history of depression anxiety. MOB reports has been on Zoloft during the and will plan to stay on this in the timeframe. MOB did have some depression present during this in May [place] depression screen was of 14. No reported suicidal ideation, planning, or attempts. MOB denies any thoughts of suicide at this time. MOB reports history of marijuana use to help treat colitis but quit at the beginning of upon finding out about . There were no drug screens noted in the medical record for the mom. No drug screens at time of delivery for mom. The baby's urine drug screen is negative. Meconium test is pending for the baby. Assessment: Met with the MOB in her room, with appropriate PPE donned. MOB pleasant and cooperative, willing to speak to this television script writer. to be discharged from the special care nursery this date. MOB reports to have adequate housing, living with the FOB and FOB his mother. Denies any safety concerns in the household nor any domestic violence issues with the FOB. No issues with transportation. Reports to have all necessary supplies to care for the baby. Reports have adequate support from the FOB, FOB's mom, MOB mother and an aunt. MOB reports to have both practical and emotional support. Already active with WIC and job and family services. Agrees to a help me grow referral. Plans to stay on antidepressant medication in the timeframe. Reports has ceased use of marijuana upon realization of . Denies intent to restart this back up. Safe plan of care for the baby would include continued abstinence of any illicit substances. Educated MOB to risk for mood and anxiety disorders. MOB do not excepted resources for home-going. Let MOB know that should meconium drug screen results come back positive no reported children services would need to be made. As there are no positive drug screens on record for mom or baby at this point, and MOB endorsement of cessation upon finding out about will wait for meconium results to come back to make any child protective referrals. There have been no voiced concerns by nursing staff on hospital with special care nursery regarding parent/child interactions or bonding. Plan: [facility] resource list has been provided to the MOB as well as a mood and anxiety disorder packet information provided on shaken baby prevention and safe sleeping. MOB and discharged to home when both are ready. No further needs requested or indicated. -JORGE Bran MSW *This note was generated with [employer]entiOne[employer] software. It may contain incorrect words, spelling, and punctuation that were not noted in review of the chart prior to signing*
--- NOTE | 2021-07-17 16:47 | PCM.DC ---
Discharge Instructions Diet Discharge Diet: No restrictions Activity Discharge Activity: Return to Normal Activity Weight Bearing Status: Full weight bearing Follow Up Care Test Results: Test results from this visit will be discussed in further detail at your follow-up appointment, if applicable. Discharge Plan Admission Admit Date/Time: 07/15/21 13:55 Primary Reason for Your Visit: late delivery Attending Provider: Lizbet Rock Primary Care Provider: Care Physician,No Primary Consulting Providers: Alicia Saucedo ; Kim Cordova ; Ferny Espinosa ; Nash Casas Instructions Patient Instructions: After a Vaginal , Nutrition While , : Caring for Yourself Additional Instructions / Restrictions: physician about obtaining a COVID-19 vaccination, I recommend it be obtained within 4 to 6 months Discharge Orders/Prescriptions Prescriptions: New azithromycin 500 mg tablet 500 mg PO DAILY 3 Days Qty: 3 RF: 0 cefdinir 300 mg capsule 300 mg PO BID 6 Days Qty: 12 RF: 0 dexamethasone 6 mg tablet 6 mg PO DAILY 9 Days Qty: 9 RF: 0 sennosides-docusate sodium [Stool Softener-Stimulant Laxat] 8.6-50 mg Tablet 1 - 2 tab PO DAILY PRN PRN (Reason: Constipation ) Qty: 0 RF: 0 Continued [id number] 1 mg Tablet 1 tab PO DAILY RF: 0 sertraline [Zoloft] 50 mg Tablet 50 mg PO DAILY RF: 0 zinc Tablet,Chewable 1 tab PO DAILY RF: 0 Discontinued Tylenol PM 25-500 mg-mg/mL Solution 50 ml PO PRN PRN (Reason: Sleep) RF: 0 Vitamin C 100 mg Tablet,Chewable 100 mg PO DAILY RF: 0 Referrals / Follow Up: Lizbet Rock MD [STAFF PHYSICIAN] - See Referral Note (At 6 weeks after delivery) Care Physician,No Primary [Primary Care Provider] - Disposition Disposition (needs filled in before D/C Order can be placed): Home, Self Care
--- NOTE | 2021-07-17 17:36 | PCM.DC.BLA ---
Discharge Summary Date of Admission: 07/15/21 Date of Discharge: 07/17/21 Summary: Patient arrived in labor at 36 weeks and 5 days on 07/15/2021. Soon after delivered via vacuum-assisted vaginal delivery for nonreassuring heart tones on 07/11/2021. Before arrival patient was known Covid positive. To have persistent cough after delivery and had CT and chest x-ray on 07/16/2021 that showed bilateral infiltrates. Diagnosed with community-acquired pneumonia given ceftriaxone and azithromycin. On 07/17/2021 hospitalist were consulted and patient was diagnosed with severe Covid and suggested for 20 days of quarantine along with azithromycin and Omnicef and dexamethasone. Other recovery uneventful and baby discharged from special care mom and baby discharged on 07/17/2021 Physical Exam Const alert, oriented x3, no apparent distress, average body habitus, no limitations and healthy appearing HEENT normocephalic, head/scalp atraumatic and hearing grossly normal bilaterally Eyes PERRL Neck full ROM Extremity normal to inspection, full ROM, normal capillary refill and no joint enlargement Neuro oriented x3 Psych mental status grossly normal, thought process normal, cooperative, affect normal and speech normal Meaningful Use Info Meaningful Use Diagnoses (Choose all that apply): None applicable Discharge Plan Admission Admit Date/Time: 07/15/21 13:55 Primary Reason for Your Visit: late delivery Attending Provider: Lizbet Rock Primary Care Provider: Care Physician,No Primary Consulting Providers: Alicia Saucedo ; Kim Cordova ; Ferny Espinosa ; Nash Casas Instructions Patient Instructions: After a Vaginal , Nutrition While , : Caring for Yourself Additional Instructions / Restrictions: physician about obtaining a COVID-19 vaccination, I recommend it be obtained within 4 to 6 months Discharge Orders/Prescriptions Prescriptions: New azithromycin 500 mg tablet 500 mg PO DAILY 3 Days Qty: 3 RF: 0 cefdinir 300 mg capsule 300 mg PO BID 6 Days Qty: 12 RF: 0 dexamethasone 6 mg tablet 6 mg PO DAILY 9 Days Qty: 9 RF: 0 sennosides-docusate sodium [Stool Softener-Stimulant Laxat] 8.6-50 mg Tablet 1 - 2 tab PO DAILY PRN PRN (Reason: Constipation ) Qty: 0 RF: 0 Continued purszbkv-lut-Rn-FA 1 mg Tablet 1 tab PO DAILY RF: 0 sertraline [Zoloft] 50 mg Tablet 50 mg PO DAILY RF: 0 zinc Tablet,Chewable 1 tab PO DAILY RF: 0 Discontinued Tylenol PM 25-500 mg-mg/mL Solution 50 ml PO PRN PRN (Reason: Sleep) RF: 0 Vitamin C 100 mg Tablet,Chewable 100 mg PO DAILY RF: 0 Referrals / Follow Up: Lizbet Rock MD [STAFF PHYSICIAN] - See Referral Note (At 6 weeks after delivery) Care Physician,No Primary [Primary Care Provider] - Disposition Disposition (needs filled in before D/C Order can be placed): Home, Self Care
--- NOTE | 2021-07-17 18:54 | NURSING ---
pt send home at 1840. knows to get [address] on [address] home. has personal belongings
--- NOTE | 2021-07-26 12:26 | CASEMGMT ---
Social Work Labor and Delivery Unit 's meconium drug screen results are back and and negative for any drugs of abuse. No additional referrals are indicated. Help me grow referral submitted through the [facility] assisted care web-based referral system. No other services requested or indicated. -ROSA Bran, REWIND OPERATOR. *This note was generated with [employer] dictation software. It may contain incorrect words, spelling, and punctuation that were not noted in review of the chart prior to signing*
== END 2021-07-17 18:40 | disposition home or self-care (01) | DRG 805 ==
LOC: WPOUT 13:59 → WP 13:59
PROVIDERS: Admitting Provider Obstetrics & Gynecology; Referring Provider Obstetrics & Gynecology; Visit Provider Obstetrics & Gynecology
DX: O60.14X0 Preterm labor third trimester with preterm delivery third trimester, not applicable or unspecified (principal); U07.1 COVID-19; Z37.0 Single live birth; J12.82 Pneumonia due to coronavirus disease 2019; J15.9 Unspecified bacterial pneumonia; O98.52 Other viral diseases complicating childbirth; R09.02 Hypoxemia; O69.2XX0 Labor and delivery complicated by other cord entanglement, with compression, not applicable or unspecified; O76 Abnormality in fetal heart rate and rhythm complicating labor and delivery; E87.6 Hypokalemia; O70.1 Second degree perineal laceration during delivery; O70.0 First degree perineal laceration during delivery; Z3A.36 36 weeks gestation of pregnancy; Z87.891 Personal history of nicotine dependence
CPT/HCPCS: 59025; 59050; 71046; 80053; 81001; 83605; 85025; 86850; 86900; 86901; 87040; 87086; 94640; 99218; J7120; A4216; G0378

== ENCOUNTER → 2021-10-06 10:46 | Outpatient (CLI) | payer OTHER, SELFPAY ==
[2021-10-06 11:59] LABS: Hemoglobin 13.3 g/dL (12.0-15.0); Mean Corp Hgb Conc 32.4 g/dL (32-36); Mean Corpuscular Hgb 25.5 pg (27.0-32.0); Mean Corpuscular Volume 78.5 fL (81-99); Mean Platelet Vol. 9.7 fl (6.2-12.0); Platelet Count 249 K/mm3 (150-450); RBC Distribution Width CV 15.8 % (11.6-14.6); RBC Distribution Width SD 44.8 fl (35.1-43.9); Red Blood Count 5.22 M/mm3 (4.2-5.4); White Blood Count 6.5 K/mm3 (4.4-11.0)
[2021-10-06 12:09] LABS: Prothrombin Time (Protime)PT. 12.2 SECONDS (11.7-14.9)
[2021-10-06 12:10] LABS: Partial Thromboplast Time 29.2 Seconds (24.1-36.2)
[2021-10-06 12:16] LABS: hCG Titer Quant., Serum < 1 mIU/mL (1-3)
[2021-10-06 14:50] LABS: AST(SGOT) 17 U/L (15-37); Alanine Aminotransfer ALT/SGPT 43 U/L (13-56); Albumin, Serum 3.7 g/dL (3.2-5.0); Alkaline Phosphatase 56 U/L (45-117); Anion Gap 7 (5-15); BUN 11 mg/dL (7-18); BUN/Creat Ratio 16.7 RATIO (10-20); Calcium,Total 8.9 mg/dL (8.5-10.1); Chloride 109 mmol/L (98-107); Creatinine, Serum 0.66 mg/dL (0.55-1.02); EST Glomerular Filtration Rate 117 mL/min (>60); Est Glom Filt Rate - Afr Amer 142 mL/min (>60); Follicle Stimulating Hormone 4.1 mIU/mL; Globulin 3.6 g/dL (2.2-4.2); Glucose 88 mg/dL (74-106); Potassium 3.9 mmol/L (3.5-5.1); Protein, Total 7.3 g/dL (6.4-8.2); Sodium Level 140 mmol/L (136-145); T4 Free Direct 0.95 ng/dL (0.76-1.46); Thyroid Stim Hormone (TSH) 0.45 uIU/mL (0.358-3.74)
== END ==
LOC: WOBLAB 10:47
PROVIDERS: Visit Provider Obstetrics & Gynecology
DX: N93.9 Abnormal uterine and vaginal bleeding, unspecified (principal)
CPT/HCPCS: 36415; 80053; 83001; 83002; 84146; 84439; 84443; 84702; 85027; 85610; 85730

== ENCOUNTER 2021-10-19 11:01 | Day surgery (SDC) | payer OTHER, SELFPAY ==
--- NOTE | 2021-10-19 | EMB_PTH ---
PATIENT: SAMUEL ALVARADO LOC: [facility] [place] U#:[id number] AGE/SX: 26/F ROOM: RE10/19/[address]: Dr. Galo Alvarez MD : 1995 BED: DIS: 10/19/2021 SPEC #: [id number] RECD: 10/19/21 14:33 STATUS: TANISHA REBassem #: [id number] SHAYNA: 10/19/21 00:[address]: Galo Alvarez DEPT: SURGICAL PATHOLOGY RECD BY: Riley Sarmiento ENTERED: 10/20/21 09:48 SP TYPE: ENDOM BX/C HEAVEN DR: No Primary Care Phys Tissues: A - Endometrium, NOS B - Endometrial cavity Procedures: Surgery Specimen Level IV HEADER OPERATION: Suction dilation and curettage PRE-OP DIAGNOSIS: Irregular bleeding TISSUE SUBMITTED: A ? Sharp endometrial curettings, B ? Suction endometrial curettings MICROSCOPIC DIAGNOSIS A. Endometrium, sharp curettings: Rare strips of benign superficial endocervix and endometrium. Focal stromal hyperplasia consistent with exogenous hormonal effect. See comment. B. Endometrium, suction curettings: Secretory endometrium. Rare fragments of benign squamous and endocervical mucosa. Benign stromal hyperplasia suggestive of exogenous hormonal effect. AM:syeda 10/23/2021 COMMENT A. The specimen primarily consists of blood. Clinical correlation is suggested. MICROSCOPIC DESCRIPTION Slides are reviewed. GROSS DESCRIPTION A - Received in fixative is one container labeled with the patient's name and designated endometrial curettings. The specimen consists of multiple irregular fragments of dark-red soft tissue that in aggregate measure 2 x 2 x 0.2 cm. The specimen is totally submitted in one cassette. B - Received in fixative is one container labeled with the patient's name and designated endometrial curettings. The specimen consists of multiple irregular fragments of light olson soft tissue that in aggregate measure 2.5 x 2 x 0.2 cm. The specimen is totally submitted in one cassette. / AM:syeda 10/20/21 TC:5 [facility]: [id number] x2
[2021-10-19 11:33] LABS: Internal QC Validated? YES +Cl - CLEAR BKGD; Pregnancy, Urine Negative Negative
[2021-10-19 11:49] VITALS: BP 119/59; PULSE 69; RESP 16; TEMP 36.6; O2SAT 100; BMI 37.0
[2021-10-19] MEDS: Lactated Ringers 1,000 ML 15 ML IV (11:55)
--- NOTE | 2021-10-19 12:17 | HP.PCM.OB_ITS ---
History and Physical Date of Admission: 10/19/21 Surgical History and Physical Date: 10/19/2021 Name: BARBARA ALVARADO Age: 26 Date of : 1995 Barbara Alvarado, a 26 year old female 1 0 2 0 1, presents for Suction D on October 19, 2021 at . -- Barbara is here today for suction D&C for irregular bleeding. MEDICATIONS HISTORY: Current medications prescribed by our practice are: 1. Zoloft 100 mg tablet, 1 PO QD 2. Zoloft 25 mg tablet, 1 PO QD Patient is also takin. Vitamin 27 mg iron-0.8 mg tablet ALLERGIES: No Known Drug Allergies Infections - Chicken pox Illnesses - none Accidents - None Hospitalizations - None Review of Systems: GENERAL - Denies fever, or chills SKIN - Denies skin changes EYES - Denies visual changes EARS - Denies difficulty hearing NOSE - Denies nasal congestion or bleeding MOUTH - Denies sore throat or difficulty swallowing NECK - Denies pain or swelling RESPIRATORY - Denies shortness of breath or wheezing CARDIOVASCULAR - Denies palpitations or chest pain GASTROINTESTINAL - Denies nausea, vomiting, diarrhea, constipation GENITOURINARY - Denies dysuria, frequency of urination, incontinence of urine MUSCULOSKELETAL - Denies joint or muscle pain NEUROLOGICAL - Denies localized numbness or weakness PSYCHIATRIC - Denies depression or anxiety ENDOCRINE - Denies heat or cold intolerance, weight loss or gain HEMATO-IMMUNOLOGIC - Denies excessive bleeding with cuts SOCIAL HISTORY: Alcohol Use - None Smoking - used to smoke but quit Diet - no special diet Lifestyle - moderate stress lifestyle and single Exercise - active work Seat Belt Use - always Employer - [employer] Job Description - manufacturing storeperson Illicit Drug Use - smokes marijuana, stopped since Sexual Activity - single sexual partner Residence - lives with SO and his mother Place of - [place], [place] Hours Worked - 50 Spouse-Sig Other Name - Allen Cardoza Spouse-Sig Other Occupation - [employer] labor relations consultant Spouse-Sig Other Phone No - [phone] Children Name(s) - Fran (21) Control - wants to discuss FAMILY HISTORY: MENSTRUAL HISTORY: LMP Known?- DefiniteAmount/Duration - 7 days, Regularity - information technology architect, Frequency - monthly days, LMP - 10/19/20, Age Onset Menarche - 13 PAST PREGNANCIES: Total Pregnancies - 3; Full Term Pregnancies - 1; Premature - 0; Abortions, Induced - 0; Abortions, Spontaneous - 2; Ectopics - 0; Multiple Births - 0; Living Children - 1 SURGICAL HISTORY: 1. tonsils 2012 ; - PHYSICAL EXAM BP- 128/70 Sitting, Right arm, regular cuff Weight- 231.43471 lbs Height- 65.75 inch BMI:[id number] CONSTITUTIONAL - NAD, well nourished, and well developed SKIN - No rash, lesions, or ulcers HEENT - Normocephalic, PERRLA, EOMI NECK - No nodes, no nuchal rigidity and thyroid normal size and texture LYMPH NODES - Palpation of lymph nodes in neck and groins within normal limits ABDOMEN - Without hepatosplenomegaly, distention, masses, rebound, or guarding; normal bowel sounds; no hernias EXTREMITIES - No edema or calf tenderness NEUROLOGICAL - Cranial nerves II-XII grossly intact PSYCHIATRIC - A and O to time, place, person, mood and affect External Genital Vagina - non-tender without lesions Urethra/Urethral Meatus - non-tender Bladder - non-tender Vagina - vaginal mejia are pink and moist without loss of rugae and no evidence of atrophy Cervix - without cervical motion tenderness and has normal size and features without evident lesions Uterus - 5-6 cm in size, mobile and nontender Adnexa - clear without masses or tenderness ASSESSMENT/PLAN: 1. Abnormal Uterine And Vaginal Bleeding, Unspecified and Dyspareunia Pt s/p 07/2021. With irregular bleeding since delivery For suction D&C today. R/b/a discussed, all questions answered, consent signed
[2021-10-19 13:02] VITALS: BP 116/68; BP 119/59; PULSE 75; RESP 16; TEMP 36; O2SAT 95
[2021-10-19 13:05] VITALS: BP 100/62; BP 119/59; PULSE 68; RESP 16; O2SAT 95
--- NOTE | 2021-10-19 13:05 | PCM.OPRPT ---
Report of Operation Date of Procedure: 10/19/21 Pre-Operative Diagnosis: Abnormal uterine bleeding Post-Operative Diagnosis: Abnormal uterine bleeding Surgery/Procedure Performed:: Suction dilation and curettage Description of Surgical Findings:: Surgeon: Galo Alvarez MD Anesthesia: MAC EBL: 25 cc Urine output: 100 cc none IV fluids: 200 cc Complications: None Specimen: Suction endometrial curettings, sharp endometrial curettage Findings: No active bleeding noted. 9 mm curved suction curettage was used. Minimal to moderate amounts of tissue noted. Consent: Patient with abnormal uterine bleeding in need of suction dilation curettage. Patient understands the risk of the procedure include but are not limited to visceral or vascular injury, prolonged hospitalization, blood loss and need for transfusion, reoperation. Patient stated understanding and wished to proceed. All questions were answered and consent was signed. Procedure: Patient was brought back to the OR where MAC anesthesia was found be adequate. 200 mg of IV doxycycline were given for infection prophylaxis. Patient was prepared and draped in dorsal lithotomy position with yellowfin stirrups. A weighted speculum was placed in the posterior aspect of the vagina. Cervical dilators were used to dilate the cervix. 9 mm curved suction curettage was used under direct visualization. Tissue sent to pathology. Sharp endometrial curettage was performed and sent to pathology. Good hemostasis was noted. All counts were correct x2. Patient tolerated the procedure well and was brought to recovery in a stable condition.
--- NOTE | 2021-10-19 13:08 | PCM.DC ---
Discharge Instructions Diet Discharge Diet: No restrictions Activity Discharge Activity: Return to Normal Activity, May Drive and May Shower May resume sexual activity in: 4-6 weeks Weight Bearing Status: Weight bearing as tolerated Dressing / Incision Call your doctor if your incision/area has: Continuous Slow Oozing and Foul Smelling Discharge Call your doctor if you observe: Fever of 101 or Higher, Shortness of breath and Chest pain Follow Up Care Please Follow Up With: Galo Alvarez MD When: 2 weeks postoperatively Test Results: Test results from this visit will be discussed in further detail at your follow-up appointment, if applicable. Discharge Plan Admission Attending Provider: Galo Alvarez Primary Care Provider: Care Physician,No Primary Discharge Orders/Prescriptions Prescriptions: No Action hesylyew-ayp-Eo-FA 1 mg Tablet 1 tab PO DAILY RF: 0 sertraline [Zoloft] 50 mg Tablet 75 mg PO DAILY RF: 0 zinc Tablet,Chewable 1 tab PO DAILY RF: 0 azithromycin 500 mg tablet 500 mg PO DAILY 3 Days Qty: 3 RF: 0 cefdinir 300 mg capsule 300 mg PO BID 6 Days Qty: 12 RF: 0 dexamethasone 6 mg tablet 6 mg PO DAILY 9 Days Qty: 9 RF: 0 sennosides-docusate sodium [Stool Softener-Stimulant Laxat] 8.6-50 mg Tablet 1 - 2 tab PO DAILY PRN PRN (Reason: Constipation ) Qty: 0 RF: 0 Disposition Discharge Orders: Discharge Patient (Routine); Ordered 10/19/21 Ordered By: Dr. Galo Alvarez
[2021-10-19 13:20] VITALS: BP 119/59; BP 99/86; PULSE 70; RESP 16; TEMP 36.3; O2SAT 98
[2021-10-19] MEDS: Ketorolac 30 MG/ML Syringe IV (14:49)
[2021-10-19] MEDS: Acetaminophen 500 MG Tablet 1000 MG PO (14:49)
[2021-10-19 15:01] VITALS: BP 111/64; BP 119/59; PULSE 77; RESP 16; TEMP 36.6; O2SAT 97
== END 2021-10-19 15:03 | disposition home or self-care (01) ==
LOC: SDC 11:04 → AC 11:04
PROVIDERS: Anesthesiology; Referring Provider Obstetrics & Gynecology; Visit Provider Obstetrics & Gynecology
PROC: (CPT 58120; principal; 2021-10-19 12:15)
DX: N85.01 Benign endometrial hyperplasia (principal); N94.10 Unspecified dyspareunia; Z20.822 Contact with and (suspected) exposure to COVID-19; F32.9 Major depressive disorder, single episode, unspecified; F41.9 Anxiety disorder, unspecified; Z79.899 Other long term (current) drug therapy; Z87.891 Personal history of nicotine dependence
CPT/HCPCS: 58120; 81025; 87426; 88305; J7120; A4216; J2405